=== PATIENT | male | born 1980 | race Caucasian/White ===

== ENCOUNTER → 2016-11-06 | Outpatient (CLI) | payer BC ==
--- NOTE | 2016-11-06 10:35 | US ---
EXAMINATION TYPE: US liver DATE OF EXAM: 11/06/2016 COMPARISON: NONE CLINICAL HISTORY: K82.4 Cholesterolosis of gallbladder. Intermittent abd pain EXAM MEASUREMENTS: Liver Length: 17.9 cm Gallbladder Wall: 0.2 cm CBD: 0.5 cm Right Kidney: 11.2 x 5.2 x 5.0 cm Pancreas: not seen due to bowel gas Liver: wnl Gallbladder: non shadowing foci seen throughout GB, noted on previous exams that are nonmobile, the largest measures 7 mm and was measured at 9 mm on the prior examination. No gallbladder wall thickeni ng. Evidence for sonographic Burton's sign: no CBD: wnl Right Kidney: wnl IMPRESSION: Multiple nonshadowing, nonmobile gallbladder polyps, stable in size from the prior examin ation of 05/17/2015, however given their size (approaching 1 cm), sonographic follow-up is recommended in 6-12 months.
== END | disposition home or self-care (01) ==
LOC: RADUSWWP 07:35
PROVIDERS: ATTEND Family Medicine
DX: K82.4 Cholesterolosis of gallbladder (principal)
CPT/HCPCS: 76705

== ENCOUNTER → 2018-11-09 | Outpatient (CLI) | payer BC ==
--- NOTE | 2018-11-09 08:01 | US ---
EXAMINATION TYPE: US liver DATE OF EXAM: 11/09/2018 COMPARISON: US CLINICAL HISTORY: K82.4 Gallbladder polyps. F/U GB polyps, pt also states generalized ABD pain EXAM MEASUREMENTS: Liver Length: 16.2 cm Gallbladder Wall: 0.3 cm CBD: 0.3 cm Right Kidney: 11.3 x 4.3 x 4.5 cm Pancreas: Obscured by bowel gas Liver: wnl Gallbladder: Multiple polyps as seen on previous, largest measured at 7mm in size Evidence for sonographic Burton's sign: No CBD: wnl Right Kidney: wnl IMPRESSION: Multiple gallbladder polyps. Otherwise unremarkable study.
== END | disposition home or self-care (01) ==
LOC: RADUSWWP 07:31
PROVIDERS: ATTEND Family Medicine
DX: K82.4 Cholesterolosis of gallbladder (principal)
CPT/HCPCS: 76705

== ENCOUNTER 2018-12-09 16:09 | Emergency (ER) | payer BC, OTHER ==
[2018-12-09 16:15] VITALS: BP 139/91; PULSE 69; RESP 16; TEMP 98
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
[2018-12-10 00:22] LABS: Hepatitis B Surface AB- Quant 205.3 mIU/mL; Hepatitis B Surface Antibody Reactive (Non-Reactive); Hepatitis C IgG Antibody Non-Reactive (Non-Reactive)
[2018-12-10 01:39] LABS: HIV 1 AB Non-Reactive (Non-Reactive); HIV 2 AB Non-Reactive (Non-Reactive); HIV AB P24 Non-Reactive (Non-Reactive); HIV P24 AG Non-Reactive (Non-Reactive)
== END 2018-12-09 16:42 | disposition home or self-care (01) ==
LOC: EC 16:09
DX: Z77.21 Contact with and (suspected) exposure to potentially hazardous body fluids (principal); Z87.891 Personal history of nicotine dependence
CPT/HCPCS: 36415; 86706; 86803; 87390; 99283

== ENCOUNTER → 2024-03-07 | Outpatient (CLI) | payer BC ==
--- NOTE | 2024-03-07 09:15 | US ---
EXAMINATION TYPE: US abdomen complete DATE OF EXAM: 03/07/2024 COMPARISON: US(11/09/2018) CLINICAL INDICATION: Male, 43 years old with history of R10.13 ABDOMINAL PAIN; TECHNIQUE: Grayscale and color Doppler imaging of the abdomen was performed. FINDINGS: EXAM MEASUREMENTS: Liver Length: 15.8 cm Gallbladder Wall: 0.2 cm CBD: 0.5 cm, color Doppler imaging was utilized to isolate the common bile duct for measurement. Spleen: 11.6 cm Right Kidney: 11.7x4.9x6.2 cm Left Kidney: 11.7x5.5x5.2 cm LINKER UP NOTES: slightly limited exam due to overlying bowel Pancreas: Most of the pancreas is visualized without gross abnormality. Liver: wnl, no dilated ducts, masses or cysts. Gallbladder: Multiple polyps seen within Gb wall as seen on prior US Largest: 0.4cm. Largest previously measured 7 mm. No shadowing stones or wall thickening. Evidence for sonographic Burton's sign: No CBD: wnl Spleen: wnl Right Kidney: No hydronephrosis. Scattered echogenic foci largest measuring 8 mm and 5 mm. Left Kidney: wnl, No hydronephrosis, calculi or masses seen Upper IVC: Slightly obscured by bowel gas, prox: wnl Abd Aorta: Prox: obscured by bowel, Mid/Dist: wnl IMPRESSION: 1. Gallbladder wall polyps redemonstrated, largest 4 mm. Previously measured up to 7 mm. Recommend an nual surveillance follow-up. 2. No biliary ductal dilatation. 3. Right-sided nephrolithiasis measuring up to 8 mm. [facility], Workstation: [email or web address], 03/07/2024 9:13 AM
== END | disposition home or self-care (01) ==
LOC: RADUSWWP 06:55
PROVIDERS: ATTEND Family Medicine
DX: N20.0 Calculus of kidney (principal); K82.4 Cholesterolosis of gallbladder; R10.13 Epigastric pain
CPT/HCPCS: 76700